=== PATIENT | female | born 1970 | race Caucasian/White ===

== ENCOUNTER 2016-07-01 06:26 | Inpatient (IN) ==
[2016-07-01] MEDS ORDERED: *HR* Succinylcholine 200 MG/10 ML VIAL IVP ONE (06:38)
[2016-07-01] MEDS ORDERED: Ondansetron 4 MG/2 ML VIAL ONE (06:38)
[2016-07-01] MEDS ORDERED: *HR* Midazolam HCl 2 MG/2 ML VIAL ONE (06:38)
[2016-07-01] MEDS ORDERED: Dexamethasone 4 MG/ML VIAL ONE (06:38)
[2016-07-01] MEDS ORDERED: *HR* FentaNYL (PF) 100 MCG/2 ML VIAL ONE (06:38)
[2016-07-01] MEDS ORDERED: *HR* Propofol 200 MG/20 ML VIAL IVP ONE (06:39)
[2016-07-01] MEDS ORDERED: CeFAZolin Pre 2,000 MG/100 ML 2,000 MG/100 ML BAG IVPB ONE (06:47)
[2016-07-01] MEDS ORDERED: Lidocaine -MPF 1% 2 ML VIAL ID ONE (06:47)
[2016-07-01] MEDS ORDERED: Acetaminophen IV 1,000 MG/100 ML INFUS..BTL IVPB ONE (06:57)
[2016-07-01] MEDS ORDERED: diazePAM 5 MG TABLET PO ONE (06:57)
--- NOTE | 2016-07-01 07:01 | Anesthesia Evaluation PreOp ---
Date of Encounter: 07/01/16 Time of Encounter: 06:50 - Past History Planned Operation: LAVH Cardiac History: Arrhythmia (history of palpitations, stable on propranolol) Pulmonary History: Denies Any Significant HX ADMINISTRATIVE ASSISTANT RECEPTIONIST History: Denies Any Significant HX Other Medical History: Thyroid (stable thyroid cysts) Anesthesia History: No Prior Anesthetic Complications, Past Anesthesia Alcohol Use: rarely Drug use: none Medications and Allergies Acetaminophen [Tylenol Arthritis] 650 mg PO TID PRN 04/09/16 [History] Celecoxib [Celebrex] 200 mg PO DAILY 04/09/16 [History] Doxycycline Monohydrate 40 mg PO DAILY 04/09/16 [History] Multivitamin [One Daily Essential] 1 each PO DAILY 04/09/16 [History] Propranolol [Inderal] 20 mg PO HS 04/09/16 [History] Spironolact/Hydrochlorothiazid [Aldactazide 25-25 Tablet] 1 each PO DAILY [History] Allergies Erythromycin Base Adverse Reaction (Unverified 04/09/16 06:45) Vomiting - Meds/Allergy Pre-op Review Medications Reviewed: Yes Allergies Reviewed: Yes Beta Blockers on Current Med List: Yes (last dose last night around 9 pm) Anesthesia Results - Labs Laboratory Tests 06/25/16 06/25/16 08:29 08:29 WBC 8.8 Hgb 13.6 Hct 42.1 Plt Count 352 Sodium 137 Potassium 4.8 H Chloride 107 Carbon Dioxide 22 BUN 14 Creatinine 0.86 - Imaging EKG: image reviewed (sinus rhythm) Anesthesia Exam Weight: 69 kg NPO (# of Hours): over 8 hours - HEENT Pupil (Motor): Pupils equal Mallampati: II Teeth: Normal Oral Opening: Greater than 3 - Cardiac Rhythm: Regular Murmur: None - Pulmonary Breath Sounds: bilateral Clear Anesthesia Assess/Plan ASA Score: 2 Modified Schwertner Scale for Level of Consciousness: Anixous, agitated or restless Anesthetic Plan: General Monitoring Plan: Standard Monitors Recovery Plan: PACU (Extremely anxious, discussed at length, general anesthesia , risks. Agreed to proceed. Will be given preop anxiolytics)
[2016-07-01] MEDS ORDERED: Scopolamine Patch 1.5 MG PATCH.TD72 TD ONE (07:04)
[2016-07-01] MEDS ORDERED: Ketorolac 30 MG/ML VIAL IVP ONE (07:05)
[2016-07-01] MEDS ORDERED: Metoclopramide 10 MG/2 ML VIAL IVP ONE (07:05)
[2016-07-01] MEDS ORDERED: *HR* Morphine 2 MG/ML SYRINGE IVP PRN (07:05)
[2016-07-01] MEDS ORDERED: *HR* Promethazine 25 MG/ML VIAL IVP PRN (07:05)
[2016-07-01] MEDS ORDERED: Ondansetron 4 MG/2 ML VIAL IVP ONE (07:05)
[2016-07-01] MEDS ORDERED: *HR* Midazolam HCl 2 MG/2 ML VIAL IVP PRN (07:05)
[2016-07-01] MEDS: Ringers Solution, Lactated 1,000 ML IVC SCH ×2 (07:16→12:41)
[2016-07-01] MEDS ORDERED: *HR* Vasopressin 20 UNIT/ML VIAL ONE (07:21)
[2016-07-01] MEDS ORDERED: Bupivacaine/EPI 1:200k 0.25%PF 10 ML VIAL INFILT ONE (07:21)
--- NOTE | 2016-07-01 07:37 | History & Physical Report ---
Date of Encounter: 07/01/16 Time of Encounter: 07:37 24 Hour HP Update - Instructions Instructions: If the History and Physical is less than 30 days old and was completed prior to A.M. admission and or procedure and has NOT been updated on calendar day of procedure please complete this update prior to performing procedure. - Update Patient reports changes in Medical Condition: No Changes in assessment/condition: No Changes in Medication: No Preop tests/diagnostics Reviewed: Yes Surgery Remains Indicated: Yes Consent for Planned Operative Procedure(s) Verified: Yes - Pre-Operative Checklist Preoperative Checklist Indicated: Yes Prophylactic Antibiotic Ordered: Yes Home Medications Include Beta Brionna: Yes Beta Brionna Taken Today (Day of Surgery): No Beta Brionna Taken Yesterday (Day Prior to Surgery): Yes Is VTE Prophylaxis Indicated?: Yes
[2016-07-01] MEDS ORDERED: *HR* Morphine 10 MG/ML VIAL ONE (09:56)
--- NOTE | 2016-07-01 11:06 | OB/GYN Procedure Note ---
Hysterectomy - Diagnosis Date of procedure: 07/01/16 Hysterectomy pre-op: menorrhagia, symptomatic leiomyomata Post-op diagnosis: other (pelvic adhesions) - Procedure Hysterectomy procedure: total abdominal hysterectomy, bilateral salpingo- oophorectomy, other (diagnostic laparoscopy) Surgeon: Melisa Luna Degreaser Operator: Edil Epstein Anesthesia provider: Meenakshi Oglesby Anesthesia Type: General Estimated blood loss (cc): 200 Complications: none Fluids: crystalloid Specimens: right ovary, uterus, cervix, left ovary, right fallopian tube, left fallopian tube Disposition: PACU Narrative: Indications: This is a 46-year-old female with long history of heavy bleeding. She she has been on control pills without any significant relief. She had an endometrial biopsy which was benign. Ultrasound notes the presence of fibroids. She has previously had an endometrial ablation. Recently a diagnostic hysteroscopy was attempted but was unsuccessful due to adhesion. She has received 3 injections of Lupron over the past 3 months without any improvement with her bleeding. She now presents for hysterectomy. Procedure: Patient was taken the operative placed in supine position and a general anesthetic was administered. She was then placed a modified dorsal lithotomy position skin was prepped and draped in sterile fashion. Timeout procedure was performed. A weighted speculumin vagina and the anterior lip of cervix was grasped with single-tooth tenaculum. A uterine manipulator was inserted. Next the infraumbilical incision site was infiltrated with 0.25% Marcaine with epinephrine, and a transverse infraumbilical incision was then performed. A blade less trocar was then inserted under direct visualization. The abdominal cavity was insufflated with carbon dioxide gas. 2 lateral trochars were then inserted. Uterus tubes and ovaries revealed visualized however there was extensive filmy adhesions throughout the pelvis. Uterus is noted be retroverted consistent with previous ultrasound findings. It was also noted to be quite adherent to the posterior pelvic wall. Several adhesions were easily taken down and we were able to see the ureters bilaterally. Both infundibulopelvic ligaments were transected with Harmonic scalpel and this was carried through the round ligaments and we were able to create a bladder flap. However on the left side there is significant subserosal fibroid present that was adhered to the sidewall and as previously mentioned uterus was adhered to the posterior pelvic wall. This was unable to be mobilized therefore we decided to proceed with a open laparotomy. The trochars were removed as were the vaginal instruments. A Pfannenstiel incision was then performed and carried down to the fascial layer into the abdominal cavity was entered. An Lavonne'Rohit-O' Peterson retractor was placed in the incision site in the bowel was gently packed in the upper abdomen with wet lap sponges. Was able to break up all filmy adhesions in a blunt manner. The entire uterus was then mobile. The remaining cardinal ligaments were clamped cut and ligated with 0 Vicryl suture eventually the distal aspect of the cervix was reached. The vagina was then crossclamped and the entire specimen was removed. The vaginal cuff was closed with 0 Vicryl suture in an interrupted [id number] fashion. Cavity was then copiously irrigated with sterile water and good hemostasis was achieved. The packing and retractor was then removed and the fascial layer was closed with 0 PDS Strattafix suture and running nonlocking fashion. The subcutaneous layer was then irrigated with sterile water. Hemostasis was present. Subcutaneous layer was closed with 0 chromic suture in a running unlocked fashion. Superficial subcutaneous layer was then closed with 4-0 Vicryl suture in running unlocked fashion continued close the skin edges in a running subcuticular fashion. A piece of Dermabond mesh was then placed over the incision site. Patient followed procedure well, all sponge needle and some counts reported as correct. As Shaina loss was 200 mL, and urine in the Santa catheter was clear and yellow. She was then taken recovery in stable condition.
[2016-07-01] MEDS ORDERED: *HR* HYDROmorphone 20 MG/20 ML PCA IVC PRN (11:54)
[2016-07-01] MEDS ORDERED: *HR* OxyCODONE/APAP 5/325 TABLET PO PRN (11:54)
[2016-07-01] MEDS ORDERED: Naloxone 0.4 MG/ML INJ IVP PRN (11:54)
--- NOTE | 2016-07-01 12:02 | Anesthesia Evaluation Post Op ---
Date of Encounter: 07/01/16 Time of Encounter: : - Vital Signs Vital Signs: Last Vital Signs Temp 97.2 F L 07/01/16 11:25 Pulse 66 07/01/16 11:25 Resp 16 07/01/16 11:25 BP 125/79 07/01/16 11:25 Pulse Ox 100 07/01/16 11:25 - Lungs Lungs: Clear Ascult./Percussion - Airway Airway: Non-obstructed - Cardiovascular Regular Rate - Mental Status Mental Status: Alert & Oriented, Answers Appropriately - Pain Pain Scale: 3 - Nausea Vomiting Nausea Vomiting: Responds to treatment with IV Meds - Hydration Hydration: Ice chips - Discharge PostOp Status: Transfer Patient to floor
[2016-07-01] MEDS ORDERED: Ringers Solution, Lactated 1,000 ML ONE ×2 (12:38→20:04)
[2016-07-01] MEDS: Ketorolac 30 MG/ML VIAL IVP PRN ×2 (14:52→22:01)
[2016-07-02 03:32] LABS: Basophils % 0.3 %; Eosinophils % 0.2 %; Hematocrit 30.1 % (35.3-44.9); Immature Granulocytes % 0.4 % (0-4); Lymphocytes # 2.1 K/mcL (0.6-4.6); Lymphocytes % 19.3 %; Mean Corpuscular HGB Conc 33.2 g/dL (31.6-35.5); Mean Corpuscular Volume 87.2 fL (83.0-100.0); Mean Platelet Volume 10.1 fL (9.4-12.4); Monocytes % 9.6 %; Neutrophils # 7.5 K/mcL (1.6-8.9); Platelet Count 240 K/mcL (140-400); Red Blood Count 3.45 M/mcL (3.82-4.97); Red Cell Distribution Width 13.9 % (11.5-14.5); Segmented Neutrophils % 70.2 %
[2016-07-02 03:47] LABS: eGFR For African Americans > 60 (> 60); eGFR For Non-African Americans > 60 (> 60)
[2016-07-02] MEDS ORDERED: Ringers Solution, Lactated 1,000 ML ONE (04:06)
[2016-07-02] MEDS: Ketorolac 30 MG/ML VIAL IVP PRN ×2 (04:21→10:52)
--- NOTE | 2016-07-02 08:15 | OB/GYN Progress Note ---
Date of Encounter: 07/02/16 Time of Encounter: 08:13 - Assessment and Plan (1) Leiomyoma of body of uterus Current Visit: Yes Status: Acute Qualifiers: Uterine leiomyoma location: subserosal Qualified Code(s): D25.2 - Subserosal leiomyoma of uterus (2) Anemia Current Visit: Yes Status: Acute Qualifiers: Anemia type: iron deficiency Iron deficiency anemia type: chronic blood loss Qualified Code(s): D50.0 - Iron deficiency anemia secondary to blood loss (chronic) (3) Menorrhagia Current Visit: Yes Status: Acute Qualifiers: Menorrahagia type: with regular cycle Qualified Code(s): N92.0 - Excessive and frequent menstruation with regular cycle Subjective - Subjective Patient reports: pain well controlled, other (feeling better) Objective - Vital Signs Latest vital signs: Vital Signs Temp Pulse Resp BP Pulse Ox 07/02/16 03:25 98.5 F 70 14 97/60 99 07/02/16 00:16 97.5 F L 70 16 92/52 99 07/01/16 19:45 98.1 F 70 15 96/61 99 07/01/16 19:40 15 07/01/16 16:31 98.3 F 73 16 110/71 100 07/01/16 13:44 97.6 F 67 16 122/75 100 07/01/16 12:45 98.4 F 64 14 124/72 100 07/01/16 12:19 97.6 F 16 60 118/70 100 07/01/16 11:45 97.4 F L 58 16 117/77 100 07/01/16 11:25 97.2 F L 66 16 125/79 100 07/01/16 11:15 97.2 F L 70 16 120/79 100 07/01/16 11:05 70 16 121/79 100 07/01/16 10:55 73 14 117/75 100 07/01/16 10:45 97.0 F L 78 16 115/75 98 Intake and Output 07/01/16 07/02/16 07/02/16 23:59 07:59 15:59 Intake Total 100 / 100 740 / 740 Output Total 250 / 250 1650 / 1650 Balance -150 / -150 -910 / -910 Intake: Oral 100 / 100 740 / 740 Output: Catheter 250 / 250 1650 / 1650 Other: Weight 70.942 kg Patient Weight 07/02/16 23:59 Weight 70.942 kg - I&O's I&O's: Intake & Output 06/29/16 06/30/16 07/01/16 07/02/16 23:59 23:59 23:59 23:59 Intake Total 1200 / 1200 740 / 740 Output Total 650 / 650 1650 / 1650 Balance 550 / 550 -910 / -910 Weight 71.3 kg 70.942 kg - Exam Lungs: bilateral: normal Chest: Normal S1, Normal S2 Extremities: Present: normal. Absent: tenderness, edema Abdomen: Present: normal appearance, soft, other (normal bowel sounds) Incision OB: Present: dressed - Labs Labs: Abnormal lab results RBC 3.45 M/mcL (3.82-4.97) L 07/02/16 03:25 Hgb 10.0 g/dL (11.5-15.4) L D 07/02/16 03:25 Hct 30.1 % (35.3-44.9) L 07/02/16 03:25 Consult Discharge Plan - Plan Instructions: Abdominal Hysterectomy (DC) Additional Instructions: No driving for two weeks. Do not lift anything heavier than a gallon of milk for 4 weeks. No intercourse for 4 weeks. Do not take Celebrex while taking Toradol. Referrals: Melisa Luna DO [Partnered Physician] - Prescriptions: Acetaminophen w/Cod 300-30 mg [Tylenol w/Codeine #3] 1 each PO Q6HR PRN #30 tablet PRN Reason: Moderate Pain Ketorolac [Toradol] 10 mg PO Q6HR PRN #20 vial PRN Reason: Mild Pain Docusate [Colace] 100 mg PO BID #60 capsule Ferrous Sulfate [Iron] 325 mg PO DAILY #30 capsule.er
[2016-07-02 08:22] VITALS: BP 100/57
[2016-07-02] MEDS ORDERED: Celecoxib 100 MG CAPSULE PO SCH (09:00)
--- NOTE | 2016-07-02 12:36 | Discharge Summary ---
Date of Encounter: 07/02/16 Time of Encounter: 12:36 - Discharge Diagnosis (1) Leiomyoma of body of uterus Priority: Primary Status: Resolved Qualifiers: Uterine leiomyoma location: subserosal Qualified Code(s): D25.2 - Subserosal leiomyoma of uterus (2) Anemia Priority: Secondary Status: Acute Qualifiers: Anemia type: iron deficiency Iron deficiency anemia type: chronic blood loss Qualified Code(s): D50.0 - Iron deficiency anemia secondary to blood loss (chronic) (3) Menorrhagia Priority: Secondary Status: Resolved Qualifiers: Menorrahagia type: with regular cycle Qualified Code(s): N92.0 - Excessive and frequent menstruation with regular cycle - Discharge Medications Prescriptions: Acetaminophen w/Cod 300-30 mg [Tylenol w/Codeine #3] 1 each PO Q6HR PRN #30 tablet PRN Reason: Moderate Pain Ketorolac [Toradol] 10 mg PO Q6HR PRN #20 vial PRN Reason: Mild Pain Docusate [Colace] 100 mg PO BID #60 capsule Ferrous Sulfate [Iron] 325 mg PO DAILY #30 capsule.er Home Medications: Celecoxib [Celebrex] 100 mg PO DAILY 07/01/16 [History] Doxycycline Monohydrate [Doxycycline Ir-Dr] 40 mg PO DAILY 07/01/16 [History] Propranolol [Inderal] 20 mg PO HS 07/01/16 [History] Spironolactone [Aldactone] 100 mg PO DAILY 07/01/16 [History] Acetaminophen w/Cod 300-30 mg [Tylenol w/Codeine #3] 1 each PO Q6HR PRN #30 tablet 07/02/16 [Rx] Docusate [Colace] 100 mg PO BID #60 capsule 07/02/16 [Rx] Ferrous Sulfate [Iron] 325 mg PO DAILY #30 capsule.er 07/02/16 [Rx] Ketorolac [Toradol] 10 mg PO Q6HR PRN #20 vial 07/02/16 [Rx] Allergies/Adverse Reactions: Allergies Erythromycin Base Adverse Reaction (Verified 07/01/16 07:34) Vomiting Data Procedures and tests throughout hospitalization: Laboratory Tests 07/02/16 07/02/16 03:25 03:25 WBC 10.7 RBC 3.45 L Hgb 10.0 L D Hct 30.1 L MCV 87.2 MCH 29.0 MCHC 33.2 RDW 13.9 Plt Count 240 MPV 10.1 Immature Gran % 0.4 Seg Neutrophils % 70.2 Lymphocytes % 19.3 Monocytes % 9.6 Eosinophils % 0.2 Basophils % 0.3 Neutrophils # 7.5 Lymphocytes # 2.1 Monocytes # 1.0 Eosinophils # 0.0 Basophils # 0.0 Creatinine 0.67 Est GFR ( Amer) > 60 Est GFR (Non-Af Amer) > 60 Labs on day of discharge: Labs from last 24 hours 07/02/16 07/02/16 03:25 03:25 WBC 10.7 RBC 3.45 L Hgb 10.0 L D Hct 30.1 L MCV 87.2 MCH 29.0 MCHC 33.2 RDW 13.9 Plt Count 240 MPV 10.1 Immature Gran % 0.4 Seg Neutrophils % 70.2 Lymphocytes % 19.3 Monocytes % 9.6 Eosinophils % 0.2 Basophils % 0.3 Neutrophils # 7.5 Lymphocytes # 2.1 Monocytes # 1.0 Eosinophils # 0.0 Basophils # 0.0 Creatinine 0.67 Est GFR ( Amer) > 60 Est GFR (Non-Af Amer) > 60 Date of admission: 07/01/16 12:29 Primary care physician: Aashish Eagle Discharging clinician: Melisa Luna Anticipated date of discharge: 07/02/16 - Patient Status Disposition: Home, Self-Care Condition: Good Functional capacity at discharge: independent ambulation Overall status at discharge: patient is progressing back to baseline - Discharge Instructions Instructions: Abdominal Hysterectomy (DC) Follow Up With: Melisa Luna DO [Partnered Physician] - Additional Instructions: No driving for two weeks. Do not lift anything heavier than a gallon of milk for 4 weeks. No intercourse for 4 weeks. Do not take Celebrex while taking Toradol. - Diet and Activity Activity: increase activity as tolerated Diet: advance to your usual diet Hospital Course [facility] Reason for admission: menorrhagia, other (leiomyoma) Discharge diagnosis: menorrhagia, other (leiomyoma, anemia) Time Attestation: Total time spent providing and/or coordinating discharge services: Time Spent: Less than 30 minutes Exam - Constitutional Vitals: Temp Pulse Resp BP Pulse Ox 98.5 F 73 16 100/57 99 07/02/16 07:40 07/02/16 07:40 07/02/16 07:40 07/02/16 07:40 07/02/16 03:25 General appearance IM: A&O X 3, no acute distress - Respiratory Respiratory exam: Absent: respiratory distress - Cardiovascular Cardiovascular exam IM: Absent: irregular rhythm - GI/Abdominal GI/Abdominal exam IM: normal bowel sounds Incision: normal, dry, intact - Rectal Rectal exam: deferred - Extremities Exam Extremities exam IM: Absent: calf tenderness - VTE Documentation of Mechanical Device: Intermittent pneumatic compression device
== END 2016-07-02 14:33 | disposition home or self-care (01) | DRG 743 ==
LOC: SAMDAY 06:26 → 1NENUOBS 12:03
PROC: GYNLAVH (ICD-10-PCS; 2016-07-01 07:45)